=== PATIENT | male | born 1975 | race Caucasian/White ===

== ENCOUNTER 2021-06-25 22:28 | Emergency (ER) | payer OTHER ==
[~2021-06-25] VITALS: Ht 175.3 cm; Wt 89.4 kg
[2021-06-25] MEDS ORDERED: OXAZEPAM 15 MG CAP PO ONE (22:45)
[2021-06-25 23:04] LABS: HEMATOCRIT 47.9 % (42.0-52.0); HEMOGLOBIN 16.7 g/dl (13.5-17.5); MEAN CORPUSCULAR HEMOGLOBIN 33.4 pg (27.0-33.0); MEAN CORPUSCULAR HGB CONC 34.9 g/dl (32.0-36.5); MEAN CORPUSCULAR VOLUME 95.8 fl (80.0-96.0); PLATELET COUNT, AUTOMATED 224 10^3/uL (150-450); WHITE BLOOD COUNT 11.1 10^3/uL (4.0-10.0)
[2021-06-25 23:51] LABS: ALBUMIN 4.1 GM/DL (3.2-5.2); ALT/SGPT 102 U/L (12-78); BILIRUBIN,DIRECT 0.3 MG/DL (0.0-0.2); BILIRUBIN,TOTAL 0.7 MG/DL (0.2-1.0); BLOOD UREA NITROGEN 4 MG/DL (7-18); CALCIUM LEVEL 8.4 MG/DL (8.5-10.1); CARBON DIOXIDE LEVEL 26 MEQ/L (21-32); CHLORIDE LEVEL 104 MEQ/L (98-107); CREATININE FOR GFR 0.56 MG/DL (0.70-1.30); ETHYL ALCOHOL (ETHANOL) 0.383 % (0.000-0.010); GLOMERULAR FILTRATION RATE > 60.0 (>60); GLUCOSE, FASTING 129 MG/DL (70-100); POTASSIUM SERUM 3.6 MEQ/L (3.5-5.1); SODIUM LEVEL 140 MEQ/L (136-145); TOTAL PROTEIN 7.7 GM/DL (6.4-8.2)
[2021-06-26 01:15] VITALS: BP 120/56
== END 2021-06-26 01:45 | disposition home or self-care (01) ==
LOC: M ED 22:28
DX: F10.129 Alcohol abuse with intoxication, unspecified (principal); F32.9 Major depressive disorder, single episode, unspecified

== ENCOUNTER → 2021-06-27 | Outpatient (CLI) | payer OTHER | LOC: M OUTALCOH 09:21 | PROVIDERS: ATTEND Psychiatry & Neurology Psychiatry | DX: F10.10 Alcohol abuse, uncomplicated (principal); Z53.9 Procedure and treatment not carried out, unspecified reason ==

== ENCOUNTER → 2021-06-30 | Outpatient (CLI) | payer OTHER | LOC: M OUTALCOH 07:29 | PROVIDERS: ATTEND Psychiatry & Neurology Psychiatry | DX: F10.20 Alcohol dependence, uncomplicated (principal) ==

== ENCOUNTER 2021-07-17 08:45 | Outpatient (RCR) | payer OTHER | END 2021-07-18 | LOC: M OUTALCOH 08:45 | PROVIDERS: ATTEND Psychiatry & Neurology Psychiatry | DX: F10.20 Alcohol dependence, uncomplicated (principal); Z72.0 Tobacco use; F12.10 Cannabis abuse, uncomplicated ==

== ENCOUNTER 2021-07-19 10:10 | Outpatient (RCR) | payer OTHER | END 2021-08-17 | LOC: M OUTALCOH 10:10 | PROVIDERS: ATTEND Psychiatry & Neurology Psychiatry | DX: F10.20 Alcohol dependence, uncomplicated (principal); Z72.0 Tobacco use; F12.10 Cannabis abuse, uncomplicated ==

== ENCOUNTER → 2024-02-25 | Outpatient (REF) | payer OTHER ==
[2024-02-25 16:55] LABS: MEAN CORPUSCULAR HEMOGLOBIN 30.9 pg (27.0-33.0); MEAN CORPUSCULAR HGB CONC 34.1 g/dl (32.0-36.5); MEAN CORPUSCULAR VOLUME 90.5 fl (80.0-96.0); PLATELET COUNT, AUTOMATED 211 10^3/uL (150-450); RED BLOOD COUNT 4.86 10^6/uL (4.30-6.10); WHITE BLOOD COUNT 10.1 10^3/uL (4.0-10.0)
[2024-02-25 17:03] LABS: ERYTHROCYTE SEDIMENTATION RATE 51 mm/hr (0-15)
[2024-02-25 17:19] LABS: ATYPICAL LYMPH 11 % (0-5); BASOPHILS 1 % (0-1); EOSINOPHILS 4 % (0-3); LYMPHOCYTES 31 % (16-44); MONOCYTES 5 % (0-5); NEUTROPHILS 48 % (28-66)
[2024-02-25 17:20] LABS: BLOOD UREA NITROGEN 13 MG/DL (9-23); CALCIUM LEVEL 9.1 MG/DL (8.5-10.1); CARBON DIOXIDE LEVEL 29 MMOL/L (20-31); CHLORIDE LEVEL 105 MMOL/L (98-107); CPK CREATINE PHOSPHOKINASE 98 U/L (46-171); CREATININE FOR GFR 0.68 MG/DL (0.70-1.30); GLOMERULAR FILTRATION RATE > 60.0 (>60); GLUCOSE, FASTING 93 MG/DL (60-100); IRON (FE) 75 UG/DL (65-175); PERCENT SATURATION 22.5 % (19.7-50.0); PLATELET ESTIMATE NORMAL (NORMAL); POTASSIUM SERUM 4.3 MMOL/L (3.5-5.1); SODIUM LEVEL 139 MMOL/L (136-145); TOTAL IRON BINDING CAPACITY 334 UG/DL (250-425)
[2024-02-25 17:22] LABS: FOLATE 10.46 NG/ML (>5.4)
[2024-02-25 17:23] LABS: VITAMIN B12 LEVEL 555 PG/ML (211-911)
== END ==
LOC: M SFHCRHEU 15:00
PROVIDERS: ATTEND Internal Medicine
DX: R70.0 Elevated erythrocyte sedimentation rate (principal); R53.83 Other fatigue; M79.10 Myalgia, unspecified site